=== PATIENT | male | born 1985 | race Caucasian/White ===

== ENCOUNTER 2025-07-12 15:39 | Outpatient (CLI) | payer OTHER, SELFPAY ==
--- NOTE | ~2025-07-12 | XR_ITS ---
EXAMINATION: XR mandible min 4V, 07/12/2025 15:58 CDT HISTORY: Localized swelling, mass and lump, head, right side lump COMPARISON: No comparisons available. Findings: No acute fracture or malalignment. No significant degenerative changes. Soft tissues unremarkable. Impression: No acute fracture abnormality identified. If symptoms persist CT is recommended Reviewed, dictated and finalized at location P. Impression: No acute fracture abnormality identified. If symptoms persist CT is recommended
== END 2025-07-12 15:40 | disposition home or self-care (01) ==
LOC: GOSHIMG 15:40
PROVIDERS: PCP Nurse Practitioner Family; Visit Provider Nurse Practitioner Family
DX: R22.0 Localized swelling, mass and lump, head (principal)
CPT/HCPCS: 70110